=== PATIENT | female | born 1975 | race Caucasian/White ===

== ENCOUNTER → 2017-11-14 | Outpatient (CLI) | payer OTHER ==
--- NOTE | 2017-11-14 14:38 | WOMENS IMAGING REPORT ---
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 TECHNIQUE: Standard craniocaudal and mediolateral oblique views of each breast recorded using digita l acquisition. LIMITATIONS: None. FINDINGS: RIGHT BREAST MASSES: No suspicious masses. CALCIFICATIONS: No new or suspicious calcifications. ARCHITECTURAL DISTORTION: None. DEVELOPING DENSITY: None. ASYMMETRY: None noted. OTHER: No other significant findings. LEFT BREAST MASSES: Mass in the lateral breast, located 7.2 cm from the nipple. Possible mass in the medial t[address] st, located 4.4 cm from the nipple. Both are best demonstrated on the CC image. CALCIFICATIONS: No new or suspicious calcifications. ARCHITECTURAL DISTORTION: None. DEVELOPING DENSITY: None. ASYMMETRY: None noted. OTHER: No other significant findings. Read with the assistance of CAD. .[facility] - R2 Cenova Version 1.3 .[facility] - R2 Cenova Version 1.3 .[facility] - R2 Cenova Version 2.4 .[facility] - R2 Cenova Version 2.4 .[facility] - R2 [employer] Version 9.2 IMPRESSION: Masses in the left breast. No worrisome mammographic findings in the right breast. BREAST DENSITY: c. The breasts are heterogeneously dense, which may obscure small masses. BIRAD: 0 Incomplete: Needs Additional Imaging Evaluation and/or prior Mammograms for Comparison. RECOMMENDATION: RECOMMENDED FOLLOW-UP: Recommend additional evaluation with breast tomosynthesis (pr eferred) or compression views of the right breast and ultrasound of the right breast. Recommend rout ine screening mammography of the left breast. The patient will be contacted for additional imaging. COMMENT: The patient has been notified of the results by letter per SA requirements. Additional no tification policies are in place for contacting patient with suspicious or incomplete findings. Quality ID #[id number]: The [employer] recommends an annual screening mammogram for women aged 40 years or over. This facility utilizes a reminder system to ensure that all patients receive reminder letters, and/or direct phone calls for appointments. This includes reminders for routine scr eening mammograms, diagnostic mammograms, or other Breast Imaging Interventions when appropriate. Th is patient will be placed in the appropriate reminder system. The [employer] (ACR) has developed recommendations for screening MRI of the breast s in certain patient populations, to be used in conjunction with mammography. Breast MRI surveillanc e may be appropriate for women with more than 20% lifetime risk of developing breast cancer as deter mined by genetic testing, significant family history of the disease, or history of mantle radiation f or Hodgkins Disease. ACR Practice Guidelines 2008. TECHNICAL DOCUMENTATION: FINDING NUMBER: (1) ASSESSMENT: (1) JOB ID: [id number] [employer]- All Rights Reserved Reading location - IP/workstation name: [email or web address]
== END ==
LOC: WI 10:46
PROVIDERS: ATTEND Physician Assistant
DX: N60.11 Diffuse cystic mastopathy of right breast (principal); N60.12 Diffuse cystic mastopathy of left breast
CPT/HCPCS: 77067

== ENCOUNTER → 2017-11-21 | Outpatient (CLI) | payer OTHER ==
--- NOTE | 2017-11-21 14:20 | WOMENS IMAGING REPORT ---
EXAM DESCRIPTION: U/S BREAST UNILAT LIMITED COMPLETE DATE/TIME: 11/21/2017 1:43 pm REASON FOR STUDY: LT BREAST R92.2 R92.2 INCONCLUSIVE MAMMOGRAM FINDINGS: Please see combined report for performance of procedure and radiologic supervision and int erpretation. IMPRESSION: Please see combined report for performance of procedure and radiologic supervision and i nterpretation. Reading location - IP/workstation name: [email or web address]
--- NOTE | 2017-11-23 11:19 | WOMENS IMAGING REPORT ---
EXAM DESCRIPTION: LEFT DIAGNOSTIC MAMMO W/CAD COMPLETED DATE/TIME: 11/21/2017 1:26 pm REASON FOR STUDY: INCONCLUSIVE MAMMO; R92.2 R92.2 INCONCLUSIVE MAMMOGRAM COMPARISON: 11/14/2017 TECHNIQUE: Cone compression views of the left breast were obtained in 2 projections as well as a nina e lateral view of the left breast LIMITATIONS: None. FINDINGS: BREAST: Left MASSES: The previously described masses in the left breast are partially obscured on the additional v iews obtained. Ultrasound will be obtained for further evaluation CALCIFICATIONS: No new or suspicious calcifications. ARCHITECTURAL DISTORTION: None. DEVELOPING DENSITY: None. ASYMMETRY: None noted. OTHER: No other significant findings. BREAST ULTRASOUND: TECHNIQUE: Static and dynamic grayscale images acquired of the left breast in the specific areas of c linical/mammographic concern. Selected color Doppler images recorded. ELASTOGRAPHY PERFORMED: No. LIMITATIONS: None. FINDINGS: MASS: At the approximate 1 at 2 o'clock position in the left breast a well defined ovoid hypoechoic m ass is identified measuring 1.5 x 0.8 x 1.2 cm in diameters most consistent with a fibroadenoma or ot her benign etiology. I would recommend a followup left breast ultrasound in 6 months to confirm stab ility ELASTOGRAPHY CHARACTERISTICS: Not applicable. OTHER: No other significant finding. IMPRESSION: Probable benign finding BREAST DENSITY: c. The breasts are heterogeneously dense, which may obscure small masses. BIRAD: 3 Probably benign finding. Initial short-interval follow-up suggested. RECOMMENDATION: RECOMMENDED FOLLOW UP: Recommend followup left breast ultrasound in 6 months to conf irm stability. SPECIFIC INTERVENTION/IMAGING/CONSULTATION RECOMMENDED:No additional intervention/ imaging/consultati on needed at this time. COMMUNICATION:The imaging findings were not discussed with the patient. Her referring provider has be en notified of the findings. COMMENT: The patient has been notified of the results by letter per MQSA requirements. Additional no tification policies are in place for contacting patient with suspicious or incomplete findings. Quality ID #[id number]: The [employer] recommends an annual screening mammogram for women aged 40 years or over. This facility utilizes a reminder system to ensure that all patients receive reminder letters, and/or direct phone calls for appointments. This includes reminders for routine scr eening mammograms, diagnostic mammograms, or other Breast Imaging Interventions when appropriate. Th is patient will be placed in the appropriate reminder system. The [employer] (ACR) has developed recommendations for screening MRI of the breast s in certain patient populations, to be used in conjunction with mammography. Breast MRI surveillanc e may be appropriate for women with more than 20% lifetime risk of developing breast cancer as deter mined by genetic testing, significant family history of the disease, or history of mantle radiation f or Hodgkins Disease. ACR Practice Guidelines 2008. TECHNICAL DOCUMENTATION: FINDING NUMBER: (1) ASSESSMENT: (1) JOB ID: [id number] [employer]- All Rights Reserved Reading location - IP/workstation name: [facility]
== END ==
LOC: WI 12:52
PROVIDERS: ATTEND Physician Assistant
DX: R92.2 Inconclusive mammogram (principal)
CPT/HCPCS: 76642

== ENCOUNTER → 2018-07-16 | Outpatient (CLI) | payer OTHER ==
--- NOTE | 2018-07-16 11:20 | WOMENS IMAGING REPORT ---
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 Selected color Doppler images recorded. LIMITATIONS: None. FINDINGS: MASS: In the 1-2 o'clock position, stable hypoechoic nodule with echogenic capsule 1.3 x 0 .9 x 1.1 cm. OTHER: No other significant finding. IMPRESSION: Benign fibroadenoma. BIRAD: 2 Benign findings. RECOMMENDATION: RECOMMENDED FOLLOW-UP: Annual mammographic follow-up. COMMENT: The [employer] (ACR) has developed recommendations for screening MRI of the breasts in certain patient populations, to be used in conjunction with mammography. Breast MRI s urveillance may be appropriate for women with more than 20% lifetime risk of developing breast cancer as determined by genetic testing, significant family history of the disease, or history of mantle r adiation for Hodgkins Disease. ACR Practice Guidelines 2007. TECHNICAL DOCUMENTATION: JOB ID: [id number] [employer]- All Rights Reserved Reading location - IP/workstation name: [facility]
== END ==
LOC: WI 09:15
PROVIDERS: ATTEND Nurse Practitioner Family
DX: D24.2 Benign neoplasm of left breast (principal)
CPT/HCPCS: 76642

== ENCOUNTER → 2018-11-28 | Outpatient (CLI) | payer OTHER ==
--- NOTE | 2018-11-28 16:41 | WOMENS IMAGING REPORT ---
EXAM DESCRIPTION: BILAT SCREENING MAMMO W/CAD COMPLETED DATE/TIME: 11/28/2018 9:18 am REASON FOR STUDY: Z12.31 ROUTINE BILATERAL SCREENING Z12.31 ENCNTR SCREEN MAMMOGRAM FOR MALIGNANT N EOPLASM OF RONNIE COMPARISON: 11/14/2017, 11/21/2017 TECHNIQUE: Standard craniocaudal and mediolateral oblique views of each breast recorded using digita l acquisition. LIMITATIONS: None. FINDINGS: Findings present which are benign by mammographic criteria. No suspicious masses, calcifi cations or architectural distortion. Pertinent benign findings: Stable 15 mm fibroadenoma left breast 2 o'clock position Read with the assistance of CAD. .[facility] - R2 Cenova Version 1.3 .[facility] Imaging - R2 Cenova Version 2.1 .[facility] - R2 Cenova Version 2.4 .[facility] - R2 Cenova Version 2.4 .[facility] - R2 P[employer]ader Version 9.2 Benign mammographic findings may include one or more of the following: Smooth masses, popcorn/rim/co arse calcifications, asymmetries, post-procedure changes, and lesions with long-standing stability. IMPRESSION: BENIGN MAMMOGRAPHIC FINDINGS. BIRADS 2 BREAST DENSITY: c. The breasts are heterogeneously dense, which may obscure small masses. BIRAD: 2 BENIGN FINDING(S) RECOMMENDATION: ROUTINE SCREENING COMMENT: The patient has been notified of the results by letter per SA requirements. Additional no tification policies are in place for contacting patient with suspicious or incomplete findings. Quality ID #[id number]: The [employer] recommends an annual screening mammogram for women aged 40 years or over. This facility utilizes a reminder system to ensure that all patients receive reminder letters, and/or direct phone calls for appointments. This includes reminders for routine scr eening mammograms, diagnostic mammograms, or other Breast Imaging Interventions when appropriate. Th is patient will be placed in the appropriate reminder system. The [employer] (ACR) has developed recommendations for screening MRI of the breast s in certain patient populations, to be used in conjunction with mammography. Breast MRI surveillanc e may be appropriate for women with more than 20% lifetime risk of developing breast cancer as deter mined by genetic testing, significant family history of the disease, or history of mantle radiation f or Hodgkins Disease. ACR Practice Guidelines 2008. TECHNICAL DOCUMENTATION: FINDING NUMBER: (1) ASSESSMENT: (1) JOB ID: [id number] [employer]- All Rights Reserved Reading location - IP/workstation name: [email or web address]
== END ==
LOC: WI 08:55
PROVIDERS: ATTEND Nurse Practitioner Family
DX: Z12.31 Encounter for screening mammogram for malignant neoplasm of breast (principal)
CPT/HCPCS: 77067